=== PATIENT | male | born 1940 | race Caucasian/White ===

== ENCOUNTER 2016-05-17 13:20 | Outpatient (CLI) | payer OTHER ==
[~2016-05-17] VITALS: Ht 160 cm; Wt 93.1 kg
[2016-05-17] MEDS ORDERED: FORT1000TA PO (14:32)
[2016-05-17] MEDS ORDERED: COUMADIN 22.5 MG/TAB PO (14:32)
[2016-05-17] MEDS ORDERED: LASIX 40MG TABL40 MG PO (14:33)
[2016-05-17] MEDS ORDERED: COREG12.5 MG PO (14:33)
[2016-05-17] MEDS ORDERED: PRINIVIL20 MG PO (14:34)
[2016-05-17] MEDS ORDERED: VITAMIN D32000 IU PO (14:34)
[2016-05-17] MEDS ORDERED: ZOCOR 10MG10 MG PO (14:35)
[2016-05-17 14:41] VITALS: BP 151/66; PULSE 53; TEMP 98.5
[2016-05-17 15:31] LABS: BASO % 0.6 % (0.0-2.0); EOS # 0.1 (0.0-0.7); EOS % 3.5 % (0-4.0); GRAN % 61.3 % (42.2-75.2); HEMATOCRIT 37.5 % (42.0-52.0); HEMOGLOBIN 12.7 g/dl (13.5-18.0); LYMPH # 0.8 (1.2-3.4); LYMPH % 26.4 % (20.0-51.0); MEAN CELL VOLUME 101 fl (80.0-100.0); MEAN CORPUSCULAR HEMOGLOBIN 34 pg (27.0-31.0); MEAN CORPUSCULAR HGB CONC 34 g/dl (33.0-37.0); MEAN PLATELET VOLUME 11.2 fl (7.4-10.4); MONO # 0.3 (0.1-0.6); MONO % 8.2 % (1.7-9.3); RED BLOOD COUNT 3.71 M/mm3 (4.20-5.60); REDCELL DISTRIBUTION WIDTH-CV 14.2 % (11.5-14.5); WHITE BLOOD COUNT 3.2 K/mm3 (4.8-10.8)
[2016-05-17 15:33] LABS: PLATELET COUNT 62 K/mm3 (130-400)
[2016-05-17 15:40] VITALS: BP 129/62; PULSE 59
[2016-05-17 15:55] VITALS: BP 119/73; PULSE 61
[2016-05-17 16:10] VITALS: BP 135/78; PULSE 64
[2016-05-17 16:25] VITALS: BP 126/77; PULSE 50
[2016-05-17 16:39] VITALS: BP 107/68; PULSE 56
== END 2016-05-17 17:09 | disposition home or self-care (01) ==
LOC: SDCO 13:20
PROVIDERS: Pathology Anatomic Pathology & Clinical Pathology
DX: D61.818 Other pancytopenia (principal)
CPT/HCPCS: J2250; J2405; J2704; J3010

== ENCOUNTER → 2016-08-17 | Outpatient (CLI) | payer OTHER ==
[~2016-08-17] MED LIST: COREG12.5 MG PO; COUMADIN 22.5 MG/TAB PO; FORT1000TA PO; LASIX 40MG TABL40 MG PO; PRINIVIL20 MG PO; VITAMIN D32000 IU PO; ZOCOR 10MG10 MG PO
[2016-08-17 12:34] LABS: BASO % 0.3 % (0.0-2.0); EOS # 0.1 (0.0-0.7); EOS % 3.3 % (0-4.0); GRAN # 2.4 (1.4-6.5); GRAN % 70.6 % (42.2-75.2); LYMPH # 0.6 (1.2-3.4); LYMPH % 17.8 % (20.0-51.0); MEAN CELL VOLUME 102 fl (80.0-100.0); MEAN CORPUSCULAR HGB CONC 34 g/dl (33.0-37.0); MEAN PLATELET VOLUME 10.6 fl (7.4-10.4); MONO # 0.3 (0.1-0.6); MONO % 7.4 % (1.7-9.3); PLATELET COUNT 67 K/mm3 (130-400); RED BLOOD COUNT 3.43 M/mm3 (4.20-5.60); REDCELL DISTRIBUTION WIDTH-CV 14.2 % (11.5-14.5); WHITE BLOOD COUNT 3.4 K/mm3 (4.8-10.8)
[2016-08-17 12:37] LABS: HEMATOCRIT 34.8 % (42.0-52.0); HEMOGLOBIN 11.7 g/dl (13.5-18.0); MEAN CORPUSCULAR HEMOGLOBIN 34 pg (27.0-31.0)
[2016-08-17 13:50] LABS: ADJUSTED CALCIUM 8.8 mg/dL (8.4-10.2); ALBUMIN 3.7 gm/dL (3.5-5.0); BILIRUBIN,TOTAL 1.4 mg/dL (0.0-1.0); CALCIUM 8.6 mg/dL (8.4-10.2); CREATININE, serum 0.93 mg/dL (0.66-1.25); POTASSIUM 4.1 mmol/L (3.4-5.0); TOTAL PROTEIN 6.8 gm/dL (6.4-8.2)
[2016-08-17 14:01] LABS: TROPONIN-I 0.014 ng/mL (0.000-0.034)
== END ==
LOC: COL.LAB 10:17
PROVIDERS: Family Medicine
DX: R07.9 Chest pain, unspecified (principal)

== ENCOUNTER 2018-03-14 21:51 | Emergency (ER) | payer MEDICARE ==
[~2018-03-14] VITALS: Ht 160 cm; Wt 90.9 kg
[2018-03-14 22:16] LABS: BASO % 0.2 % (0.0-2.0); EOS % 0.2 % (0-4.0); GRAN # 3.3 (1.4-6.5); GRAN % 75.6 % (42.2-75.2); HEMOGLOBIN 11.5 g/dl (13.5-18.0); LYMPH # 0.5 (1.2-3.4); LYMPH % 11.8 % (20.0-51.0); MEAN CELL VOLUME 103 fl (80.0-100.0); MEAN CORPUSCULAR HEMOGLOBIN 35 pg (27.0-31.0); MEAN CORPUSCULAR HGB CONC 34 g/dl (33.0-37.0); MEAN PLATELET VOLUME 10.1 fl (7.4-10.4); MONO # 0.5 (0.1-0.6); PLATELET COUNT 55 K/mm3 (130-400); RED BLOOD COUNT 3.32 M/mm3 (4.20-5.60); REDCELL DISTRIBUTION WIDTH-CV 14.7 % (11.5-14.5)
[2018-03-14 22:17] LABS: HEMATOCRIT 34.3 % (42.0-52.0)
[2018-03-14 22:23] LABS: ALBUMIN 4.3 gm/dL (3.5-5.0); BILIRUBIN,TOTAL 2.9 mg/dL (0.0-1.0); CREATININE, serum 1.12 mg/dL (0.66-1.25); POTASSIUM 4.1 mmol/L (3.4-5.0); TOTAL PROTEIN 7.7 gm/dL (6.4-8.2)
[2018-03-14] MEDS ORDERED: LASIX 20MG TABL20 MG PO (22:24)
[2018-03-14] MEDS ORDERED: GLUCOPHAGE500 MG/TAB PO (22:25)
[2018-03-14 22:35] LABS: TROPONIN-I 0.019 ng/mL (0.000-0.034)
[2018-03-14 22:41] LABS: INR 3.7 (0.8-3.0); PROTHROMBIN TIME 41.8 SECONDS (9.7-12.8)
[2018-03-14 22:46] LABS: ARTERIAL BLD GAS O2 SATURATION 94.7 % (92-100); ARTERIAL BLD GAS TCO2 CT 22.3; ARTERIAL BLOOD GAS BASE EXCESS -1.9 (-2-2); ARTERIAL BLOOD GAS HCO3 21.3 meq/L (22-26); ARTERIAL BLOOD GAS PCO2 31.6 mmHg (35-45); ARTERIAL BLOOD GAS PO2 75.7 mmHg (80-100); ARTERIAL BLOOD GAS pH 7.45 (7.35-7.45)
[2018-03-14 23:55] VITALS: TEMP 97.7
[2018-03-15 00:54] LABS: COLLECTION METHOD CLEAN CATCH
[2018-03-15 01:00] LABS: PH 5 (5-8); SQUAMOUS EPITHELIAL None Seen /hpf; URINE APPEARANCE Clear; URINE BACTERIA None Seen /hpf; URINE BILIRUBIN Negative (NEGATIVE); URINE BLOOD Negative (NEGATIVE); URINE COLOR Yellow; URINE GLUCOSE Negative (NEGATIVE); URINE KETONE 1+ (NEGATIVE); URINE LEUKOCYTE ESTERASE Negative (NEGATIVE); URINE NITRATE Negative (NEGATIVE); URINE PROTEIN(semi-quant) Negative (NEGATIVE); URINE RBC 0-2 /hpf; URINE UROBILINOGEN Negative (NEGATIVE)
[2018-03-15 01:33] VITALS: BP 131/77; PULSE 77
== END 2018-03-15 01:37 | disposition short-term general hospital (02) ==
LOC: COL.ER 21:51
PROVIDERS: Emergency Medicine
DX: I48.91 Unspecified atrial fibrillation (principal); D61.818 Other pancytopenia; J18.1 Lobar pneumonia, unspecified organism; J96.91 Respiratory failure, unspecified with hypoxia; E11.9 Type 2 diabetes mellitus without complications; I10 Essential (primary) hypertension; Z79.01 Long term (current) use of anticoagulants; Z79.84 Long term (current) use of oral hypoglycemic drugs
CPT/HCPCS: J2543; J2930; J3370; J7030; J7050

== ENCOUNTER → 2018-07-19 | Outpatient (CLI) | payer MEDICARE ==
[~2018-07-19] MED LIST changes: +GLUCOPHAGE500 MG/TAB PO; +LASIX 20MG TABL20 MG PO
== END ==
LOC: COL.RAD 10:15
DX: K76.0 Fatty (change of) liver, not elsewhere classified (principal); N28.1 Cyst of kidney, acquired; K86.2 Cyst of pancreas; K82.8 Other specified diseases of gallbladder